=== PATIENT | male | born 1955 | race Caucasian/White ===

== ENCOUNTER 2017-04-20 07:40 | Emergency (ER) | payer OTHER ==
[2017-04-20 08:21] VITALS: BP 149/88
--- NOTE | 2017-04-20 08:43 | EDM.PDOC ---
ED HPI GENERAL MEDICAL PROBLEM - General Chief Complaint: Upper Extremity Injury/Pain Stated Complaint: RIGHT SHOULDER PAIN Time Seen by Provider: 04/20/17 08:02 Source of Information: Reports: Patient, RN Notes Reviewed - History of Present Illness INITIAL COMMENTS - FREE TEXT/NARRATIVE: 61 -year-old male comes in with right shoulder pain. He states he has had chronic pain of his right shoulder for about 2 or 3 years. However this became much worse about 10 days ago. He states he had an injection of the posterior aspect of his right shoulder by his regular provider about 5 days ago. That ion not seemed to help. The pain has been much worse the last couple of days. There is a constant ache much worse with any type of motion of the right arm or shoulder. No fever or chills Right Shoulder Pain Score (Numeric/FACES): 8 - Related Data Allergies Allergy/AdvReac Type Severity Reaction Status Date / Time No Known Allergies Allergy Verified 04/20/17 08:12 Home Meds: Home Meds Aspirin [Halfprin] 81 mg PO BRK 04/20/17 [History] Lisinopril 10 mg PO DAILY 04/20/17 [History] Simvastatin [Zocor] 40 mg PO BEDTIME 04/20/17 [History] Zolpidem [Ambien] 10 mg PO BEDTIME 04/20/17 [History] metFORMIN [Glucophage] 1,000 mg PO BIDMEALS 04/20/17 [History] Past Medical History Endocrine/Metabolic History: Reports: Diabetes, Type II Social & Family History - Tobacco Use Smoking Status *Q: Current Every Day Smoker Years of Tobacco use: 40 Packs/Tins Daily: 0.5 Review of Systems - Review of Systems Review Of Systems: See Below Constitutional: Denies: Chills, Fever Mouth/Throat: Reports: No Symptoms Respiratory: Denies: Shortness of Breath, Pleuritic Chest Pain Cardiovascular: Denies: Chest Pain GI/Abdominal: Denies: Abdominal Pain, Nausea, Vomiting Musculoskeletal: Reports: Shoulder Pain Skin: Reports: No Symptoms Neurological: Reports: No Symptoms. Denies: Numbness, Tingling ED EXAM, GENERAL - Physical Exam Exam: See Below General Appearance: Alert, Mild Distress Throat/Mouth: Normal Inspection Head: Atraumatic. No: Facial Swelling Neck: Supple, Full Range of Motion, Other (Neck is nontender). No: Lymphadenopathy (L), Lymphadenopathy (R) Respiratory/Chest: No Respiratory Distress, Lungs Clear, Normal Breath Sounds Cardiovascular: Regular Rate, Rhythm Extremities: Limited Range of Motion (Right shoulder secondary to pain), Other ( Right posterior shoulder is tender,, severe pain with active motion of arm and shoulder, mild discomfort with passive motion). No: Joint Swelling, Increased Warmth, Redness Neurological: Alert, Oriented, No Motor/Sensory Deficits Skin Exam: Warm, Dry, Normal Color Course - Vital Signs Last Recorded V/S: Last Vital Signs Temp 97.3 F 04/20/17 08:18 Pulse 93 04/20/17 08:18 Resp 16 04/20/17 08:18 BP 149/88 H 04/20/17 08:18 Pulse Ox 99 04/20/17 08:18 Departure - Departure Time of Disposition: 08:40 Disposition: Home, Self-Care 01 Condition: Fair Clinical Impression: Shoulder pain, right Qualifiers: Chronicity: acute Qualified Code(s): M25.511 - Pain in right shoulder - Discharge Information Instructions: Shoulder Pain Referrals: PCP,Not In Area [Primary Care Provider] - Forms: ED Department Discharge Additional Instructions: alternate ice and heat L shoulder, advil 2 tabs 3 times daily with food, take plenty of water when taking that medication, tylenol 1000 mg 3 time daily in between doses of advil for further pain relief, tramadol 50 mg 3 to 4 times daily for additional pain relief as needed. prednisone 40mg q AM for inflamation, as the inflamation decreases the discomfort you are experiencing should also improve day by day. See your provider when you get back home for further eval and treatment as needed.
== END 2017-04-20 09:01 | disposition home or self-care (01) ==
LOC: JD.ED 07:40
DX: M25.511 Pain in right shoulder (principal); E11.9 Type 2 diabetes mellitus without complications; F17.210 Nicotine dependence, cigarettes, uncomplicated; Z79.82 Long term (current) use of aspirin; Z79.84 Long term (current) use of oral hypoglycemic drugs
CPT/HCPCS: 99283